=== PATIENT | female | born 1985 | race Caucasian/White ===

== ENCOUNTER → 2019-10-24 | Outpatient (CLI) | payer BC ==
[~2019-10-24] MED LIST: IRON325 M1 PO; SYNTHROID0.05 MG PO; [UNRECOGNIZED DRUG - REMARK]
== END ==
LOC: ZCOL.LAB 08:00
DX: Z20.828 Contact with and (suspected) exposure to other viral communicable diseases (principal)

== ENCOUNTER 2019-10-27 04:29 | Inpatient (IN) | payer BC ==
[2019-10-27] VITALS (28 sets, daily range): BP systolic 93–139; BP diastolic 53–81; PULSE 50–96; TEMP 97.7–98.2
[~2019-10-27] VITALS: Ht 160 cm; Wt 81.4 kg
[2019-10-27] MEDS ORDERED: PRENATAL TABLET PO (10:55)
[2019-10-27 14:17] LABS: BASO % 0.4 % (0.0-2.0); EOS % 0.4 % (0-4.0); GRAN # 5.5 (1.4-6.5); GRAN % 67.3 % (42.2-75.2); HEMATOCRIT 37.1 % (37.0-47.0); HEMOGLOBIN 12.9 g/dl (12.5-16.0); LYMPH # 1.9 (1.2-3.4); LYMPH % 23.6 % (20.0-51.0); MEAN CELL VOLUME 90 fl (80.0-100.0); MEAN CORPUSCULAR HEMOGLOBIN 31 pg (27.0-31.0); MEAN CORPUSCULAR HGB CONC 35 g/dl (33.0-37.0); MEAN PLATELET VOLUME 10.8 fl (7.4-10.4); MONO # 0.6 (0.1-0.6); MONO % 7.4 % (1.7-9.3); PLATELET COUNT 180 K/mm3 (130-400); RED BLOOD COUNT 4.11 M/mm3 (4.10-5.30)
[2019-10-28 04:30] VITALS: BP 112/65; PULSE 66; TEMP 98.3
[2019-10-28 09:00] VITALS: BP 109/70; PULSE 61; TEMP 98.1
[2019-10-28] MEDS ORDERED: IBU800 M1 PO (09:17)
[2019-10-28 12:39] VITALS: BP 114/66; PULSE 81; TEMP 97.7
[2019-10-28 16:29] VITALS: BP 117/60; PULSE 88; TEMP 97.5
[2019-10-28 19:45] VITALS: BP 116/64; PULSE 79; TEMP 97.9
== END 2019-10-28 21:45 | disposition home or self-care (01) | DRG 806 ==
LOC: OB 04:29 → LDR 10:32 → OB 10:32
PROVIDERS: ADMIT Student in an Organized Health Care Education/Training Program
PROC: 10E0XZZ Delivery of Products of Conception, External Approach (ICD-10-PCS; principal; 2019-10-27)
PROC: 0KQM0ZZ Repair Perineum Muscle, Open Approach (ICD-10-PCS; 2019-10-27)
PROC: 10907ZC Drainage of Amniotic Fluid, Therapeutic from Products of Conception, Via Natural or Artificial Opening (ICD-10-PCS; 2019-10-27)
DX: O48.0 Post-term pregnancy (principal); O72.1 Other immediate postpartum hemorrhage; Z37.0 Single live birth; Z3A.40 40 weeks gestation of pregnancy; O26.893 Other specified pregnancy related conditions, third trimester; O70.1 Second degree perineal laceration during delivery
CPT/HCPCS: J2210; J2590; J7120

== ENCOUNTER → 2019-11-02 | Outpatient (CLI) | payer BC ==
[~2019-11-02] MED LIST changes: +IBU800 M1 PO; +PRENATAL TABLET PO
--- NOTE | 2019-11-02 15:15 | NUR ---
Pt, Janeth Freitas, presents for outpatient with 6 day old baby boy, Torito Freitas, because of sore nipples and to check latch. Torito was born on [birth year] and weighed 8#9.2oz (3890 gms). He was causing sore nipples even while in the hospital. Today Torito weighs 8#9.2oz (3890 gms), three ounces above his weight yesterday with Dr. Mercado. Pt does have abrassions on both nipples, with the right being more abraded, than the left. Pt continues to work well with the latching techniques taught while in the hospital and at the time of this consult Torito is opening well and he latches pretty easily. Pt states latch feels pretty good. After nursing Torito had a gain of 1.4oz, woke back up after getting dressed so nursed again but was not re-weighed because of his gain. Pt was instructed on football hold, baby and pt do well, states there is less discomfort. Pt was advised to contact Dr. Mcdonough and discuss RX for Calhoun's Nipple Cream. POC: Continue to breastfeed ad britney, contact Dr. Mcdonough re: [facility]. F/U: As scheduled with Dr. Mercado and Dr. Mcdonough, with this LC as needed. Questions invited and answered.
== END ==
LOC: LAC 13:27
DX: Z39.1 Encounter for care and examination of lactating mother (principal); Z71.89 Other specified counseling